=== PATIENT | male | born 2000 | race Caucasian/White ===

== ENCOUNTER 2018-08-05 18:07 | Emergency (ER) | payer OTHER ==
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
[2018-08-05 21:54] VITALS: BP 136/80
== END 2018-08-05 21:55 | disposition home or self-care (01) ==
LOC: ED 18:07
DX: S20.219A Contusion of unspecified front wall of thorax, initial encounter (principal); V89.2XXA Person injured in unspecified motor-vehicle accident, traffic, initial encounter
CPT/HCPCS: 99283

== ENCOUNTER 2020-04-06 02:23 | Emergency (ER) | payer OTHER ==
[2020-04-06] MEDS ORDERED: SILVER SULFADIAZINE CREAM 25 GM TUBE TOP STA (03:11)
[2020-04-06 03:32] VITALS: BP 140/88
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
== END 2020-04-06 03:31 | disposition home or self-care (01) ==
LOC: ED 02:23
DX: T23.241A Burn of second degree of multiple right fingers (nail), including thumb, initial encounter (principal); T31.0 Burns involving less than 10% of body surface; W39.XXXA Discharge of firework, initial encounter
CPT/HCPCS: 99281; 99282; A9270